=== PATIENT | female | born 1960 | race Caucasian/White ===

== ENCOUNTER → 2019-01-02 | Outpatient (CLI) | payer BC ==
--- NOTE | 2019-01-03 08:31 | BMR ---
EXAMINATION TYPE: MR breast RT wo/w con DATE OF EXAM: 01/02/2019 COMPARISON: Outside chest CT April 05, 2018. Prior left breast diagnostic mammogram October 29, 2013. HISTORY: Hx of breast ca / Lump, right breast approx 1 o'clock per patient CONTRAST: Multiplanar, multisequence images of the breasts were acquired utilizing 6.5 mL intravenous Gadavist gadolinium contrast. TECHNIQUE: A series of fat and water weighted images in the long and short axis views of both breasts are obtained in conjunction with dynamic contrast MRI with subtraction technique. Three-dimensional and additional postprocessing imaging is created on independent workstation and reviewed during offi cial interpretation of this study. FINDINGS: Right breast shows retropectoral silicone implant with some infolding along the periphery. Right breast implant volume is slightly more prominent than the left breast implant volume. The right breast has no residual fibroglandular tissue. Only subcutaneous fat is present. No extracapsular tory icone is identified. No suspicious solid or cystic mass or enhancement with particular attention to 1 :00 position of the right breast. No concerning axillary adenopathy is present. Artifact from right a xillary lymph node dissection is noted. Chest wall is intact. Left breast shows subpectoral implant. There is heterogeneously dense fibroglandular tissue. T2-weigh bryce images show scattered simple thin-walled cyst. There is some lobulation along the periphery of th e implant without suspicious infolding. No extracapsular silicone to suggest rupture. There are 2 are as of susceptibility artifact near level of nipple correlating with biopsy clips. Postcontrast images show moderate to marked background enhancement with numerous small foci of enhancement that show pre dominantly gradual and some plateau-type enhancement. No pathologic enhancing masses are identified. Chest wall is intact. No suspicious axillary lymph nodes are seen. IMPRESSION: No MRI evidence for invasive malignancy in either breast. No suspicious right breast mass is noted. BI-RADS 2 benign findings right breast. BI-RADS 2 benign findings left breast. Recommendation: Patient should have diagnostic annual left breast mammogram surveillance.
== END | disposition home or self-care (01) ==
LOC: RADMRIMAIN 07:47
PROVIDERS: ATTEND Family Medicine
DX: N63.12 Unspecified lump in the right breast, upper inner quadrant (principal); Z85.3 Personal history of malignant neoplasm of breast
CPT/HCPCS: 77048; C8937; A9585

== ENCOUNTER → 2019-02-17 | Outpatient (CLI) | payer BC ==
--- NOTE | 2019-02-17 11:10 | USB ---
Reason for exam: additional evaluation requested from prior study. History: Patient is postmenopausal and has history of breast cancer at age 40. Benign US LT VAD breast biopsy of the left breast, February 05, 2012. Left U/S Cancelled VAD Biopsy of both breasts, January 29, 2012. Benign left US cyst aspiration ea add of the left breast, June 20, 2010. Benign left US cyst aspiration of the left breast, June 20, 2010. Benign left US cyst aspiration ea add of the left breast, May 02, 2006. Benign left US cyst aspiration of the left breast, May 02, 2006. Cancelled Left US Needle Biopsy of the left breast, June 07, 2005. Benign excisional biopsy of the left breast, 2002. Mastectomy of the right breast, June 2001. Retro-pectoral silicone gel implants in both breasts, 2001. Mastectomy of the right breast, 2001. Chemotherapy, 2001. Took hormonal contraceptives for 4 years. Physical Findings: Nurse Summary: Patient complains of right implant fold x 1 year, 1cm lump right breast 1 o'clock, patient refuses left breast mammogram (nurse wilfredo). US Breast RT Right complete breast ultrasound includes all four quadrants, the retroareolar region and axilla. Finding demonstrates a 1.1 x 1.1 x 0.7cm solid, hypoechoic lesion at 1 o'clock. These results were verbally communicated with the patient and result sheet given to the patient on 02/17/19. ASSESSMENT: Suspicious, BI-RAD 4 RECOMMENDATION: Ultrasound core biopsy of the right breast. Called Dr. Mayberry's office with mammographic findings. Biopsy scheduled for 03/04/19 at 2:00. PRELIMINARY REPORT CALLED AND FAXED TO DR. MAYBRERY ON 02/17/19.
== END | disposition home or self-care (01) ==
LOC: RADUSWWP 06:42
PROVIDERS: ATTEND Internal Medicine Hematology & Oncology
DX: N63.11 Unspecified lump in the right breast, upper outer quadrant (principal); Z85.3 Personal history of malignant neoplasm of breast

== ENCOUNTER → 2019-03-04 | Day surgery (SDC) | payer BC ==
[2019-03-04 13:31] VITALS: RESP 16; BMI 22.8
[2019-03-04 14:28] VITALS: BP 117/77; PULSE 98; TEMP 98.6
--- NOTE | 2019-03-04 15:00 | USB ---
ULTRASOUND GUIDED CORE BIOPSY 1:00 RIGHT BREAST LESION: CLINICAL HISTORY: Request for right breast lesion 1:00 core biopsy FINDINGS: The procedure was explained to the patient. The risks, complications, benefits and alternatives were discussed and any questions were answered. Informed consent was obtained. Patient was placed supine on the ultrasound table and prepped and draped in the usual sterile fashion. Utilizing a 18 gauge needle, five passes were made into the 1:00 right breast lesion. Surgical clip was placed post procedure. Patient declined post mammogram. Patient with history of previous right mastectomy. Patient was stable throughout the procedure. Pathology is pending. All elements of maximal barrier and sterile technique were utilized. IMPRESSION: 1. Successful ultrasound guided core biopsy right breast nodule. Pathology pending. Pathology Results: Malignant RIGHT BREAST AT ONE O'CLOCK POSITION, NEEDLE CORE BIOPSIES: Infiltrating mammary adenocarcinoma, ductal type, Grade 1 of 3 ([place]). Focal perineural space invasion is identified. See note. Recommendation Surgical consult of the right breast. Definitive surgical management. Ammendable to ultrasound guided needle localization. MTDD
== END ==
LOC: RADUSWWP 12:50
PROVIDERS: ATTEND Surgery
DX: C50.211 Malignant neoplasm of upper-inner quadrant of right female breast (principal); Z85.3 Personal history of malignant neoplasm of breast; Z90.11 Acquired absence of right breast and nipple; Z98.82 Breast implant status
CPT/HCPCS: 19083; 88305; 88342; 88341; A4648; J2001

== ENCOUNTER → 2019-03-10 | Outpatient (CLI) | payer BC ==
--- NOTE | 2019-03-10 09:44 | MM ---
Reason for exam: additional evaluation requested from prior study. Last mammogram was performed 5 years and 4 months ago. History: Patient is postmenopausal and has history of breast cancer at age 58. Malignant US breast needle core RT of the right breast, March 04, 2019. Benign US LT VAD breast biopsy of the left breast, February 05, 2012. Left U/S Cancelled VAD Biopsy of both breasts, January 29, 2012. Benign left US cyst aspiration ea add of the left breast, June 20, 2010. Benign left US cyst aspiration of the left breast, June 20, 2010. Benign left US cyst aspiration ea add of the left breast, May 02, 2006. Benign left US cyst aspiration of the left breast, May 02, 2006. Cancelled Left US Needle Biopsy of the left breast, June 07, 2005. Benign excisional biopsy of the left breast, 2002. Mastectomy of the right breast, June 2001. Retro-pectoral silicone gel implants in both breasts, 2001. Mastectomy of the right breast, 2001. Chemotherapy, 2001. Took hormonal contraceptives for 4 years. Physical Findings: Nurse Summary: 1.5cm nodule in the right breast, current breast cancer (nurse dw). MG Diagnostic Mammo LT w CAD CC and MLO view(s) were taken of the left breast. Prior study comparison: October 29, 2013, left breast MG diagnostic mammo LT w CAD. There are scattered fibroglandular densities. Previous mammotome biopsy in the left breast x 3. Multiple nodules are new or larger from 2014. These results were verbally communicated with the patient and result sheet given to the patient on 03/10/19. ASSESSMENT: Incomplete: need additional imaging evaluation, BI-RAD 0 RECOMMENDATION: Ultrasound of the left breast.
--- NOTE | 2019-03-12 13:49 | USB ---
Reason for exam: additional evaluation requested from abnormal screening. History: Patient is postmenopausal and has history of breast cancer at age 58. Malignant US breast needle core RT of the right breast, March 04, 2019. Benign US LT VAD breast biopsy of the left breast, February 05, 2012. Left U/S Cancelled VAD Biopsy of both breasts, January 29, 2012. Benign left US cyst aspiration ea add of the left breast, June 20, 2010. Benign left US cyst aspiration of the left breast, June 20, 2010. Benign left US cyst aspiration ea add of the left breast, May 02, 2006. Benign left US cyst aspiration of the left breast, May 02, 2006. Cancelled Left US Needle Biopsy of the left breast, June 07, 2005. Benign excisional biopsy of the left breast, 2002. Mastectomy of the right breast, June 2001. Retro-pectoral silicone gel implants in both breasts, 2001. Mastectomy of the right breast, 2001. Chemotherapy, 2001. Took hormonal contraceptives for 4 years. US Breast LT Left complete breast ultrasound includes all four quadrants, the retroareolar region and axilla. Finding demonstrates a 0.9 x 1.2 x 0.5cm oval, cystic lesion at 12 o'clock, a 0.8 x 0.9 x 0.6cm oval, complex, cystic lesion with some debris at 2 o'clock, a 0.6 x 0.6 x 0.4cm painful, oval, cystic cluster at 5 o'clock, a 0.8 x 0.6 x 0.5cm oval, cystic lesion at 5 o'clock and a 0.4 x 0.5 x 0.2cm oval, hypoechoic lesion at 9 o'clock, too small to characterize, underlying implant, 6 month follow up. These results were verbally communicated with the patient and result sheet given to the patient on 03/10/19. ASSESSMENT: Probably benign, BI-RAD 3 RECOMMENDATION: Ultrasound of the left breast in 6 months. (9 o'clock) Appropriate surgical management on the right.
== END | disposition home or self-care (01) ==
LOC: RADMAMWWP 06:49
PROVIDERS: ATTEND Family Medicine
DX: N63.12 Unspecified lump in the right breast, upper inner quadrant (principal); R92.8 Other abnormal and inconclusive findings on diagnostic imaging of breast; Z85.3 Personal history of malignant neoplasm of breast; Z98.82 Breast implant status
CPT/HCPCS: 77065

== ENCOUNTER → 2019-03-19 | Outpatient (CLI) | payer BC ==
--- NOTE | 2019-03-19 12:09 | CT ---
EXAMINATION TYPE: CT ChestAbdPelvis w con DATE OF EXAM: 03/19/2019 INDICATION: Breast cancer COMPARISON: CT chest 04/05/2018 CT DLP: 538.50 mGycm CONTRAST: Performed with Oral Contrast and with IV Contrast, patient injected with 100 mL of Isovue 300. TECHNIQUE: Axial images at 5 mm thick sections. Reconstructed images in the coronal plane. Delayed images through the kidneys. FINDINGS: CT CHEST: Portion of the thyroid visualized is normal. There is a 0.3 cm punctate nodular density in the periphery of the right apex present previously and stable. Series 4 image 11 No enlarged mediastinal or hilar adenopathy is evident. No enlarged axillary adenopathy is evident. The ascending aorta diameter at the level of the main pulmonary artery is 2.7 cm. The main pulmonary artery diameter at the bifurcation is 2.1 cm. Bilateral breast prostheses are present. Surgical clips are in the right axillary region. CT ABDOMEN: Liver: There is a 0.5 cm hypodense in the superior right lobe liver may be a small cyst. This was pre sent previously. An additional 0.6 cm area is within the medial portion of the left liver. Series 3 image 58. This area appears larger than the comparison previously measuring 0.4 cm. Consider ultraso und of the liver. This may be slight measurement error due to plane of section. Spleen: Normal Pancreas: Normal Adrenal glands: The adrenal glands are normal. Gallbladder: Normal Kidneys: No masses are evident. No hydronephrosis is present. No cysts are present. Delayed images were obtained through the kidneys, which remain unremarkable. Aorta: Vascular calcification is within the aorta. Inferior vena cava: Normal. CT PELVIS: Loops of bowel within the abdomen and pelvis are normal. There are loops of bowel which are incom pletely distended or lack oral contrast limiting their evaluation. Diverticulosis without acute diver ticulitis is through the sigmoid colon. Appendix: Normal as visualized. Urinary bladder: Normal. Genitourinary structures: Uterus is unremarkable. Adnexal regions are clear. No free fluid is within the pelvis. Osseous structures: Some slight well-circumscribed sclerosis along the posterior column of the left h ip. Small bone islands within the right femoral head there is some increased density within the anter ior sacroiliac joints left more so than right most likely related to degenerative change. No suspicio us lytic lesions are evident. The right breast prosthesis appears larger than the left. Along the inferior medial aspect of the william ast is a small nodular density which now contains a central area of focal increased density, has a Ho unsfield unit measurement of 256 and may be a biopsy clip. The 0.8 cm nodule is stable in size from t he comparison of 2018. Series 3 image 17. Central calcification could be considered. IMPRESSIONS: 1. No obvious abnormality to suggest recurrent or metastatic breast cancer. 2. There are 2 small hypodensities appear more suggestive for cysts within the liver. Liver, these ar e better visualized currently than comparison which may be related to the plane of section obtained a t this time. This exam cannot reliably confirm benign cysts. Consider ultrasound of the liver for add itional evaluation.
== END | disposition home or self-care (01) ==
LOC: RADCTMAIN 09:39
PROVIDERS: ATTEND Surgery
DX: C50.911 Malignant neoplasm of unspecified site of right female breast (principal)
CPT/HCPCS: 71260; 74177; Q9967 ×2

== ENCOUNTER → 2019-03-24 | Day surgery (SDC) | payer BC ==
[2019-03-19 09:38] VITALS: BMI 23.3
[~2019-03-24] MED LIST: ALPRAZolam 0.5 MG TAB PO ONE; BUPIVACAINE (PF) 0.25% 30 ML VIAL SQ ONE; HEPARIN SODIUM,PORCINE 5,000 UNIT/ML 1 ML VIAL SQ ONE; HYDROcodone/APAP 5-325MG 1 EACH TAB PO ONE; HYDROcodone/APAP 5-325MG 1 EACH TAB PO PRN; HYDROmorphone 0.5 MG/0.5 ML SYRINGE IVP PRN; LACTATED RINGERS 1,000 ML IV ONE; LACTATED RINGERS 1,000 ML IV SCH; LIDOCAINE 1% 20 ML VIAL (10MG/ML) FOR IV START INTRADERMA PRN; LIDOCAINE 1% INJ 10MG/ML (20 ML MDV) ONE; LIDOCAINE 1% INJ 10MG/ML (20 ML MDV) SQ ONE; MIDAZOLAM 2 MG/2 ML VIAL ONE; NALOXONE 0.4 MG/ML 1 ML VIAL IV PRN; PHENYLEPHRINE-0.9% NACL SYG 1 MG/10 ML SYRINGE ONE; PROPOFOL 10 MG/ML 20 ML VIAL IV ONE; Pre Op ABX Message 1 EACH MISC MISCELLANE ONE; SUCCINYLCHOLINE CHLORIDE 100 MG/5 ML SYR IV ONE; ePHEDrine SULFATE/0.9% NACL/PF 50 MG/5 ML SYRINGE IV ONE; fentaNYL (PF) 50 MCG/ML 2 ML AMP ONE
[2019-03-24] MEDS: ONDANSETRON 4 MG/2 ML VIAL IVP ONE ×2 (10:16→14:13)
--- NOTE | 2019-03-24 10:30 | P.HPADDEND ---
H&P Addendum H&P Addendum Date: 03/24/19 refer to recent h&p. presented at recent tumor board. had ct negative for definitive metastatic disease. options reviewed in detail. will proceed with rt breast needle localization lumpectomy. risks of bleeding, infection, scarring, positive margins reviewed. she understands and wishes to proceed.
--- NOTE | 2019-03-24 13:17 | P.NAPBC ---
NAPBC Queries - NAPBC Queries Was patient's case review presented at [facility] tumor board? If no, comment.: Yes Was patient's pathology reviewed at [facility]? If no, comment.: Yes Was breast conservation surgery offered? If no, comment.: Yes Was sentinel node biopsy offered? If no, comment.: Yes Was diagnosis confirmed by percutaneous core biopsy? If no, comment.: Yes Is patient mastectomy patient?: No Was a preop referral to reconstructive surgeon offered?: Yes Clinical Stage: stage 1a
--- NOTE | 2019-03-24 14:13 | P.OP ---
Date of Procedure: 03/24/19 Procedure(s) Performed: REOPERATIVE DIAGNOSIS: Right breast cancer POSTOPERATIVE DIAGNOSIS: Same PROCEDURE: Right Breast wire localization lumpectomy SURGEON: Shadi EBL: 5 mL ANESTHESIA: General COMPLICATIONS: None OPERATIVE PROCEDURE: Patient was placed on the operating room table in the supine position. The wire entrance site was then addressed. This was present at the 1:00 location directed laterally. A curvilinear incision was made inferior to the wire entrance site. Flaps were raised superiorly above the level of the palpable mass. These flaps were raised until we reached the infraclavicular margin. The mass was then excised circumferentially using electrocautery. Posteriorly even the appearance on the recent MRI I removed the fascia of the pectoralis along with some of the muscular fibers. No gross malignancy was seen during the dissection. The specimen was then painted the appropriate 6 colors. Clips were used to identify the lumpectomy cavity. The clip was confirmed to be within the lumpectomy specimen by radiology. The subcutaneous tissues were closed using 3-0 Vicryl sutures. The skin was closed using a running 4-0 Monocryl stitch. Skin glue and sterile dressings were then applied. DISPOSITION: Stable to recovery room
[2019-03-24 14:18] VITALS: TEMP 97.9
--- NOTE | 2019-03-24 14:30 | USB ---
EXAM: Needle localization with wire placement. CLINICAL HISTORY: Biopsy-proven cancer in the right breast, history of breast implants. TECHNIQUE: Needle localization with wire placement and surgical excision of area of concern in the right breast. COMPARISON: Prior right breast ultrasound February 17, 2019. Recent CT March 19, 2019 FINDINGS: The procedure of needle localization with wire placement and than surgical excision was explained to the patient. Benefits, alternatives, and risks were discussed. An informed consent was then obtained. Ultrasound localization performed this lesion is well seen. Lesion appears to have intramuscular invasion on ultrasound and recent CT. Preprocedure ultrasound redemonstrates 10 x 7 mm oval heterogeneous hypoechoic mass 1:[address] clip on CT not as well seen on ultrasound. The overlying skin was prepped and draped in usual sterile fashion. Lidocaine is used as anesthetic into the skin. Lidocaine with epinephrine is used as anesthetic into the deeper tissue up to the level of area of concern. Inability to elevate lesion from muscle noted during local anesthetic injection. A 5 cm needle was used. It was placed under ultrasound guidance. At this point, wire was placed and the needle was withdrawn. The wire was fixed to patient's skin. The patient tolerated the procedure well without any immediate complication. The patient was kept in the radiology department for short stay after the procedure and then taken to surgery for surgical excision. Targeted biopsy clip and wire are identified in specimen mammogram. The patient was kept in hospital for short stay after the procedure and then discharged home in stable condition. IMPRESSION: Successful, uncomplicated needle localization with wire placement and surgical excision of targeted biopsy clip in the right breast, full pathology results to follow. Pathology Results: Malignant RIGHT BREAST MASS, NEEDLE LOCALIZATION LUMPECTOMY: Infiltrating adenocarcinoma, Sadaf grade 1 measuring 1.2 x 1.1 x 0.8 cm. The specimen is excised but extends to within 1.1 mm of the anterior blue and inferior green inked margins and focally superficially involves skeletal muscle. See Surgical Pathology Cancer Case Summary. Recommendation: Appropriate oncologic management. MTDD
[2019-03-24] MEDS: MEPERIDINE 50 MG/ML SYRINGE IVP ONE ×2 (14:35→14:53)
[2019-03-24 15:30] VITALS: RESP 18
[2019-03-24 15:52] VITALS: BP 145/89
[2019-03-24 16:18] VITALS: PULSE 77
== END ==
LOC: OR 09:45
PROVIDERS: ATTEND Surgery
DX: C50.211 Malignant neoplasm of upper-inner quadrant of right female breast (principal); J44.9 Chronic obstructive pulmonary disease, unspecified; F39 Unspecified mood [affective] disorder; K21.9 Gastro-esophageal reflux disease without esophagitis; Z85.3 Personal history of malignant neoplasm of breast; Z90.11 Acquired absence of right breast and nipple; Z98.82 Breast implant status; Z79.899 Other long term (current) drug therapy; Z79.52 Long term (current) use of systemic steroids; Z87.891 Personal history of nicotine dependence; Z82.3 Family history of stroke; Z82.49 Family history of ischemic heart disease and other diseases of the circulatory system; Z80.9 Family history of malignant neoplasm, unspecified
CPT/HCPCS: 19301; 88307; 76098; J2250; J1644; J2175; J0690; J2405; J2001; J3010; J2370; J0330; J2704

== ENCOUNTER → 2020-06-02 | Outpatient (CLI) | payer BC | END | disposition home or self-care (01) | LOC: LABWHC1 11:32 | PROVIDERS: ATTEND Surgery Plastic and Reconstructive Surgery | DX: Z01.812 Encounter for preprocedural laboratory examination (principal) ==